=== PATIENT | male | born 1960 | race Caucasian/White ===

== ENCOUNTER 2019-05-26 09:46 | Outpatient (CLI) | payer OTHER, SELFPAY ==
--- NOTE | 2019-05-26 | US_ITS ---
WS: [id number] ULTRASOUND RENAL TECHNIQUE: Ultrasound examination of both kidneys. CLINICAL INFORMATION: ABDOMINAL BRUIT COMPARISON: None. FINDINGS: RIGHT: Right kidney is normal in size and appearance. Echogenicity: Normal.. Hydronephrosis: None. Perinephric fluid: None. Right kidney measures: 13.5 cm x 5.2 cm x 5.6 cm. LEFT: Left kidney is normal in size and appearance. Echogenicity: Normal. Hydronephrosis: None. Perinephric fluid: None. Left kidney measures: 12.2 cm x 6.4 cm x 5.8 cm. Normal visualized aorta. Bladder is decompressed. US/US renal BI* [id number] IMPRESSION: Normal renal ultrasound.
--- NOTE | 2019-05-26 | US_ITS ---
WS: [id number] EXAM: ROR renal doppler DATE OF EXAMINATION: May 26, 2019 COMPARISON: None. HISTORY: Abdominal bruit FINDINGS: Right kidney is estimated at 13.4 cm in length. Left kidney is estimated 12.2 cm in length. Aortic velocity at the level of the renal arteries is 56 cm/s Maximal renal artery velocity is 80.6 and 165 cm/s, right and left respectively. Resistive indices are 0.56- 0.75 on the right and 0.65-0.77 on the left. Upper limits of normal is at or below 0.70. US/ROR renal doppler IMPRESSION: 1. No significant right renal artery stenosis. 2. Left renal artery systolic velocity 165 cm/s within normal limits at the up per end of the range. 3. Slightly elevated resistive indices bilaterally suggestive of medical renal disease.
--- NOTE | 2019-05-26 | US_ITS ---
WS: [id number] ULTRASOUND ABDOMINAL AORTA INDICATION: Abdominal bruit TECHNIQUE: Ultrasound examination of the abdominal aorta with Doppler. FINDINGS: Ultrasound of the abdominal aorta. No evidence of abdominal aortic aneurysm. Mild aortic atheromatous disease. Common iliac arteries are normal in appearance. [place] [id number] IMPRESSION: No evidence of abdominal aortic aneurysm.
== END 2019-05-26 09:47 | disposition home or self-care (01) ==
LOC: RADOUTREAD 11:54
PROVIDERS: Visit Provider Physician Assistant
DX: Z76.89 Persons encountering health services in other specified circumstances (principal)

== ENCOUNTER → 2019-08-09 14:32 | Outpatient (BNVA) | payer OTHER, SELFPAY | PROVIDERS: Referring Provider Physician Assistant; Visit Provider Urology | DX: N41.0 Acute prostatitis (principal); N40.0 Benign prostatic hyperplasia without lower urinary tract symptoms | CPT/HCPCS: 81001 ==

== ENCOUNTER → 2020-08-07 10:54 | Outpatient (BNVA) | payer OTHER, SELFPAY | PROVIDERS: PCP Nurse Practitioner Family; Visit Provider Urology | DX: N40.0 Benign prostatic hyperplasia without lower urinary tract symptoms (principal); N41.0 Acute prostatitis | CPT/HCPCS: 81003 ==

== ENCOUNTER → 2021-08-06 10:43 | Outpatient (BNVA) | payer OTHER, SELFPAY | PROVIDERS: PCP Nurse Practitioner Family; Visit Provider Urology | DX: N40.0 Benign prostatic hyperplasia without lower urinary tract symptoms (principal); Z12.5 Encounter for screening for malignant neoplasm of prostate; N41.0 Acute prostatitis | CPT/HCPCS: 81003; G0103 ==

== ENCOUNTER → 2022-08-05 12:19 | Outpatient (BNVA) | payer OTHER, SELFPAY | PROVIDERS: PCP Nurse Practitioner Family; Visit Provider Urology | DX: N40.0 Benign prostatic hyperplasia without lower urinary tract symptoms (principal); N41.0 Acute prostatitis | CPT/HCPCS: 81003 ==